=== PATIENT | male | born 1965 | race Caucasian/White ===

== ENCOUNTER → 2017-12-01 | Outpatient (CLI) | payer OTHER | LOC: LAB 15:49 → LAB SHORT 15:49 | DX: H66.92 Otitis media, unspecified, left ear (principal) | CPT/HCPCS: 87070; 87077; 87186; 87205 ==

== ENCOUNTER 2023-12-10 09:42 | Emergency (ER) | payer BC ==
[~2023-12-10] VITALS: Ht 175.3 cm; Wt 108.9 kg
[2023-12-10 10:10] VITALS: BP 150/88
[2023-12-10] MEDS ORDERED: CEPH500 PO (11:01)
== END 2023-12-10 11:05 | disposition home or self-care (01) ==
LOC: ER 09:42
DX: L03.115 Cellulitis of right lower limb (principal)
CPT/HCPCS: 73630; 99283-25